=== PATIENT | male | born 1995 | race American Indian/Alaskan Native ===

== ENCOUNTER 2018-02-03 11:55 | Emergency (ER) | payer BC ==
[2018-02-03 12:01] VITALS: BMI 24.2
[2018-02-03 12:04] VITALS: RESP 18; TEMP 98.3
--- NOTE | 2018-02-03 12:36 | ED PDOC ---
Arrival/HPI - General Chief Complaint: Male Genitourinary Time Seen by Provider: 02/03/18 12:26 Historian: Patient - History of Present Illness Narrative History of Present Illness (Text): 02/03/18 12:33 22 y/o male, no pmh, nkda, c/o rt. testicular swelling x 1 year with no fall or trauma. Rt. testicular swelling, no pain, no urinary symptoms, no penile discharge, no night sweat, no weight loss, no numbness or tingling, no other medical or psychological complaints. Past Medical History - Provider Review Nursing Documentation Reviewed: Yes - Infectious Disease Hx of Infectious Diseases: None - Psychiatric Hx Substance Use: Yes - Anesthesia Hx Anesthesia: No Family/Social History - Physician Review Nursing Documentation Reviewed: Yes Family/Social History: Unknown Family HX Smoking Status: Current Some Days Smoker Hx Alcohol Use: No Hx Substance Use: Yes Substance used: marijuana Allergies/Home Meds Allergies/Adverse Reactions: Allergies No Known Allergies Allergy (Verified 02/03/18 12:00) Review of Systems - Review of Systems Constitutional: absent: Fatigue, Fevers Eyes: absent: Vision Changes ENT: absent: Hearing Changes Respiratory: absent: SOB, Cough Cardiovascular: absent: Chest Pain Gastrointestinal: absent: Abdominal Pain Genitourinary Male: Other (rt. testicular swelling). absent: Dysuria, Frequency , Hematuria Musculoskeletal: absent: Arthralgias, Back Pain Skin: absent: Rash, Pruritis Neurological: absent: Headache, Dizziness Psychiatric: absent: Anxiety, Depression Physical Exam Vital Signs Reviewed: Yes Vital Signs Temp Pulse Resp BP Pulse Ox 02/03/18 13:27 89 18 101/65 100 02/03/18 12:01 98.3 F 98 H 18 92/64 L 98 Temperature: Afebrile Pulse: Regular Respiratory Rate: Normal Appearance: Positive for: Well-Appearing, Non-Toxic, Comfortable Pain Distress: None Mental Status: Positive for: Alert and Oriented X 3 - Systems Exam Head: Present: Atraumatic, Normocephalic Pupils: Present: PERRL Extroacular Muscles: Present: EOMI Conjunctiva: Present: Normal Mouth: Present: Moist Mucous Membranes Neck: Present: Normal Range of Motion Respiratory/Chest: Present: Clear to Auscultation, Good Air Exchange. No: Respiratory Distress, Accessory Muscle Use Cardiovascular: Present: Regular Rate and Rhythm, Normal S1, S2. No: Murmurs Abdomen: Present: Normal Bowel Sounds, Hernias (Rt. inguinal). No: Tenderness, Distention, Peritoneal Signs, Rebound, Guarding Genitourinary Male: Present: Normal External Genitalia, Circumcised Penis, Testicle Swelling (Rt. ), Other (Female Financial Sales Associate: GROUP DIRECTORMIMA Jauregui.). No : Lesions, Penile Discharge, Testicle Tenderness, Penile Swelling, Masses, Erythema, Hernias Back: Present: Normal Inspection Upper Extremity: Present: Normal Inspection. No: Cyanosis, Edema Lower Extremity: Present: Normal Inspection. No: Edema Neurological: Present: GCS=15, Speech Normal, Motor Func Grossly Intact, Gait Normal, Memory Normal Skin: Present: Warm, Dry, Normal Color. No: Rashes Psychiatric: Present: Alert, Oriented x 3, Normal Insight, Normal Concentration Medical Decision Making ED Course and Treatment: 02/03/18 12:36 -UA -Testicular sonogram -Scrotal support -Observe and reassess 02/03/18 14:30 -Sonogram scrotum: Soft tissue findings in the right scrotal sac likely a right inguinal hernia containing bowel. No evidence of epididymitis, orchitis, torsion. -I performed the reduction for the patient with the able to push the inguinal hernia back up, swelling on the rt. testicle resolved. Pt. has no pain pre and post procedure, last urination and bowel movement prior to the arrival. -UA show possible uti, will treat with macrobid. -I explained to the patient that he should return to the ER if he has any pelvic /groin/abdominal pain including nausea/vomiting/unable to have any bowel movement. Pt. verbally expressed understanding. -Case discussed with Dr. Soto, he agreed on the diagnosis/treatment and discharge plan. -Discharge home with macrobid, follow up with your own pmd and general surgeon/ urologist within 2 days, return to the ER for any new or worsening signs or symptoms. - Lab Interpretations Lab Results: Lab Results 02/03/18 12:47: Urine Color Yellow, Urine Appearance Clear, Urine pH 6.0, Ur Specific [place] 1.025, Urine Protein Trace H, Urine Glucose (UA) Negative, Urine Ketones Negative, Urine Blood Trace-intact H, Urine Nitrate Negative, Urine Bilirubin Negative, Urine Urobilinogen 1.0 H, Ur Leukocyte Esterase Trace H, Urine RBC 1 - 3, Urine WBC 2 - 5, Ur Epithelial Cells 3 - 4, Urine Bacteria Small, Urine Other Mucus - RAD Interpretation Radiology Orders: 02/03/18 12:32 TESTES DUPLEX COMPLETE [US] Stat HISTORY: rt. testicular swelling x 1 year TECHNIQUE: Realtime sonography through the scrotum with color and doppler flow. COMPARISON: None Available. FINDINGS: RIGHT TESTICLE: Measures 2.1 x 3.1 x 4.2 cm. Normal echotexture and flow. RIGHT EPIDIDYMIS: Epididymal head measures 0.9 x 0.6 cm. Grossly unremarkable appearance with normal flow. LEFT TESTICLE: Measures 2.1 x 2.4 x 4.2 cm. Normal echotexture and flow. LEFT EPIDIDYMIS: Epididymal head measures 1.1 x 1.3 cm. Grossly unremarkable appearance with normal flow. HYDROCELE: None. VARICOCELE: None. OTHER FINDINGS: Soft tissue findings in the right scrotal sac likely a right inguinal hernia containing bowel. IMPRESSION: No evidence of epididymitis, orchitis, torsion. Supervisor Stave Finishing: Radiologist - PA / ELECTRONIC [employer]GAN MECHANIC / Resident Statement / has reviewed & agrees with the documentation as recorded. Disposition/Present on Arrival - Present on Arrival Any Indicators Present on Arrival: No History of DVT/PE: No History of Uncontrolled Diabetes: No Urinary Catheter: No History of Decub. Ulcer: No History Surgical Site Infection Following: None - Disposition Have Diagnosis and Disposition been Completed?: Yes Diagnosis: Inguinal hernia Disposition: HOME/ ROUTINE Disposition Time: 12:36 Patient Plan: Discharge Condition: GOOD Discharge Instructions (ExitCare): Inguinal and Femoral (Groin) Hernias Additional Instructions: -Discharge home with macrobid, follow up with your own pmd and general surgeon/ urologist within 2 days, return to the ER for any new or worsening signs or symptoms. Prescriptions: Nitrofurantoin Macrocrystals [Macrobid] 100 mg PO BID #14 cap Referrals: Kashmir Pickett MD [Staff Provider] - Follow up with primary Leodan Cox MD [Staff Provider] - Follow up with primary [facility] [place] - Follow up with primary Forms: WORK NOTE
[2018-02-03 12:52] LABS: URINE APPEARANCE CLEAR (CLEAR); URINE BILIRUBIN NEGATIVE (NEGATIVE); URINE BLOOD TRACE-INTACT (NEGATIVE); URINE COLOR YELLOW (YELLOW); URINE GLUCOSE (UA) NEGATIVE (NEGATIVE); URINE LEUKOCYTE ESTERASE TRACE Leu/uL (NEGATIVE); URINE PROTEIN TRACE mg/dL (<30 mg/dL)
[2018-02-03 12:58] LABS: URINE BACTERIA SMALL (NEG)
[2018-02-03 13:28] VITALS: O2SAT 100
--- NOTE | 2018-02-03 13:44 | US ---
HISTORY: rt. testicular swelling x 1 year TECHNIQUE: Realtime sonography through the scrotum with color and doppler flow. COMPARISON: None Available. FINDINGS: RIGHT TESTICLE: Measures 2.1 x 3.1 x 4.2 cm. Normal echotexture and flow. RIGHT EPIDIDYMIS: Epididymal head measures 0.9 x 0.6 cm. Grossly unremarkable appearance with normal flow. LEFT TESTICLE: Measures 2.1 x 2.4 x 4.2 cm. Normal echotexture and flow. LEFT EPIDIDYMIS: Epididymal head measures 1.1 x 1.3 cm. Grossly unremarkable appearance with normal flow. HYDROCELE: None. VARICOCELE: None. OTHER FINDINGS: Soft tissue findings in the right scrotal sac likely a right inguinal hernia containing bowel. IMPRESSION: No evidence of epididymitis, orchitis, torsion.
[2018-02-03 14:32] VITALS: BP 103/68; PULSE 79
== END 2018-02-03 15:00 | disposition home or self-care (01) ==
LOC: ED 11:55
DX: K40.90 Unilateral inguinal hernia, without obstruction or gangrene, not specified as recurrent (principal); F17.200 Nicotine dependence, unspecified, uncomplicated